=== PATIENT | male | born 1965 | race African-American/Black ===

== ENCOUNTER 2017-12-26 09:27 | Inpatient (IN) | payer MEDICAID ==
[~2017-12-26] VITALS: Ht 190.5 cm; Wt 94.3 kg
[2017-12-26] MEDS ORDERED: MIRT15 PO (09:45)
[2017-12-26] MEDS ORDERED: BUSP5TAB20 PO (09:45)
[2017-12-26 09:50] LABS: BASOPHILS % (AUTO) 1.4 % (0.0-2.0); EOSINOPHILS % (AUTO) 1.3 % (1.0-6.0); HEMATOCRIT 30.3 % (41-53); HEMOGLOBIN 10.1 g/dL (13.5-17.5); LYMPHOCYTES # (AUTO) 2.4 K/uL (1.0-4.8); LYMPHOCYTES % (AUTO) 25.8 % (22.0-44.0); MEAN CORPUSCULAR HEMOGLOBIN 28.4 pg (26.0-34.0); MEAN CORPUSCULAR HGB CONC 33.4 G/dL (31.0-37.0); MEAN CORPUSCULAR VOLUME 85 fL (80-100); MONOCYTES # (AUTO) 0.7 K/uL (0.1-1.0); MONOCYTES % (AUTO) 7.4 % (2.0-9.0); NEUTROPHILS # (AUTO) 6.1 K/uL (1.8-7.7); NEUTROPHILS % (AUTO) 64.1 % (40.0-70.0); PLATELET COUNT (AUTO) 244 K/uL (150-450); RED BLOOD CELL COUNT(AUTO) 3.57 MIL/uL (4.50-5.90); RED CELL DISTRIBUTION WIDTH 15.1 % (11.5-14.5)
[2017-12-26 09:59] LABS: ANION GAP 7 mmol/L (8-16); CALCIUM, TOTAL 8.2 mg/dL (8.8-10.5); CARBON DIOXIDE 28 mmol/L (22-29); CHLORIDE 104 mmol/L (98-107); CREATININE 0.89 mg/dL (0.60-1.30); GLOMERULAR FILTR. RATE CALC > 60 mL/min (>60); GLUCOSE,RANDOM 113 mg/dL (70-110); POTASSIUM 3.7 mmol/L (3.5-5.1); SODIUM SERUM 139 mmol/L (136-145); UREA NITROGEN, BLOOD 14 mg/dL (7-18)
[2017-12-26 10:05] LABS: ALANINE AMINOTRANSFERASE 151 U/L (12-78); ALBUMIN 3.3 g/dL (3.4-5.0); ALKALINE PHOSPHATASE 57 U/L (46-116); ASPARTATE AMINOTRANSFERASE 305 U/L (15-37); BILIRUBIN,TOTAL 0.8 mg/dL (0.1-1.0); TOTAL PROTEIN, SERUM 7.1 g/dL (6.4-8.2)
[2017-12-26] MEDS ORDERED: OLANZapine 5 MG RAPDIS TABLET PO PRN (11:45)
[2017-12-26] MEDS ORDERED: ACETAMINOPHEN 325 MG TABLET PO PRN (12:00)
[2017-12-26 13:51] LABS: APPEARANCE,URINE CLEAR (CLEAR); BILIRUBIN,URINE NEGATIVE (NEGATIVE); GLUCOSE, URINE (UA) NEGATIVE (NEGATIVE); KETONES,URINE 15 mg/dL (NEGATIVE); LEUKOCYTE ESTERASE ,URINE NEGATIVE (NEGATIVE); NITRATE,URINE NEGATIVE (NEGATIVE); OCCULT BLOOD,URINE NEGATIVE (NEGATIVE); PROTEIN,URINE TRACE (NEGATIVE)
[2017-12-26 13:55] LABS: AMPHET/METH SCREEN,URINE NEGATIVE (NEGATIVE); BARBITURATE SCREEN, URINE NEGATIVE (NEGATIVE); BENZODIAZEPINES SCREEN,URINE NEGATIVE (NEGATIVE); CANNABINOID SCREEN,URINE NEGATIVE (NEGATIVE); COCAINE SCREEN,URINE NEGATIVE (NEGATIVE); METHADONE SCREEN, URINE NEGATIVE (NEGATIVE); OPIATE SCREEN,URINE NEGATIVE (NEGATIVE)
[2017-12-26 13:56] LABS: PHENCYCLIDINE SCREEN,URINE NEGATIVE (NEGATIVE)
[2017-12-26 14:00] LABS: BACTERIA,URINE None Seen /HPF (None Seen); RBC,URINE 0-2 /HPF (0-2); WBC,URINE None Seen /HPF (0-5)
[2017-12-26] MEDS ORDERED: TERBINAFINE HCL 1% 30 GM CREAM TP ONE (19:36)
[2017-12-26] MEDS: IBUPROFEN 400 MG TABLET PO PRN (20:45)
[2017-12-26] MEDS: ZOLPIDEM TARTRATE 10 MG TABLET PO PRN (20:55)
[2017-12-26] MEDS: LORazepam 2 MG TABLET PO PRN (20:55)
[2017-12-26 20:57] VITALS: BP 169/87
[2017-12-26] MEDS ORDERED: MAG HYDROX/AL HYDROX/SIMETH ES 30 ML SUSPENSION UDCUP PO PRN (21:30)
[2017-12-26] MEDS ORDERED: ONDANSETRON HCL 4 MG TABLET PO PRN (21:30)
[2017-12-26] MEDS ORDERED: DOCUSATE SODIUM 100 MG CAPSULE PO PRN (21:30)
[2017-12-26] MEDS ORDERED: CloNIDine HCL 0.1 MG TABLET PO PRN (21:30)
[2017-12-26] MEDS ORDERED: ALBUTEROL SULFATE HFA 90 MCG/PUFF 8 GM INHALER IH PRN (21:30)
[2017-12-26] MEDS ORDERED: GuaiFENesin/D-METHORPHAN [SUGAR-FREE] 200-20MG/10 ML SYRUP UDCUP PO PRN (21:30)
[2017-12-26] MEDS ORDERED: PNEUMOCOCCAL VACCINE POLYVALENT 0.5 ML VIAL [PPSV23] IM ONE (21:30)
[2017-12-26] MEDS ORDERED: LOPERAMIDE HCL 2 MG CAPSULE PO PRN (21:30)
[2017-12-26] MEDS ORDERED: MAGNESIUM HYDROXIDE SUSPENSION 30 ML UDCUP PO PRN (21:30)
[2017-12-26] MEDS: AmLODIPine BESYLATE 10 MG TABLET PO SCH (21:30)
[2017-12-26 21:45] VITALS: BP 123/65
[2017-12-27] VITALS (9 sets, daily range): BP systolic 117–147; BP diastolic 59–86
[2017-12-27] MEDS: AmLODIPine BESYLATE 10 MG TABLET PO SCH (08:04)
[2017-12-27] MEDS: SULFAMETHOX/TRIMETH DS 800-160 MG/TABLET PO SCH ×2 (08:04→17:08)
[2017-12-27] MEDS: CEPHALEXIN MONOHYDRATE 500 MG CAPSULE PO SCH ×4 (08:04→20:59)
[2017-12-27 08:05] LABS: BASOPHILS % (AUTO) 0.5 % (0.0-2.0); EOSINOPHILS % (AUTO) 6.1 % (1.0-6.0); HEMATOCRIT 28.7 % (41-53); HEMOGLOBIN 9.7 g/dL (13.5-17.5); LYMPHOCYTES # (AUTO) 2.9 K/uL (1.0-4.8); LYMPHOCYTES % (AUTO) 45.2 % (22.0-44.0); MEAN CORPUSCULAR HEMOGLOBIN 28.3 pg (26.0-34.0); MEAN CORPUSCULAR HGB CONC 33.9 G/dL (31.0-37.0); MEAN CORPUSCULAR VOLUME 84 fL (80-100); MONOCYTES # (AUTO) 0.5 K/uL (0.1-1.0); MONOCYTES % (AUTO) 7.6 % (2.0-9.0); NEUTROPHILS # (AUTO) 2.6 K/uL (1.8-7.7); NEUTROPHILS % (AUTO) 40.6 % (40.0-70.0); PLATELET COUNT (AUTO) 258 K/uL (150-450); RED BLOOD CELL COUNT(AUTO) 3.44 MIL/uL (4.50-5.90); RED CELL DISTRIBUTION WIDTH 15.4 % (11.5-14.5)
[2017-12-27 08:32] LABS: HEMOGLOBIN A1C 6.2 % (4.5-6.2)
[2017-12-27 08:43] LABS: ALANINE AMINOTRANSFERASE 111 U/L (12-78); ALBUMIN 2.6 g/dL (3.4-5.0); ALKALINE PHOSPHATASE 43 U/L (46-116); ANION GAP 4 mmol/L (8-16); ASPARTATE AMINOTRANSFERASE 156 U/L (15-37); BILIRUBIN,TOTAL 0.6 mg/dL (0.1-1.0); CALCIUM, TOTAL 7.9 mg/dL (8.8-10.5); CARBON DIOXIDE 30 mmol/L (22-29); CHLORIDE 107 mmol/L (98-107); CHOL/HDL RATIO 2.7 (4.2-7.3); CHOLESTEROL 110 mg/dL (131-200); GLOMERULAR FILTR. RATE CALC > 60 mL/min (>60); GLUCOSE,RANDOM 99 mg/dL (70-110); HDL CHOLESTEROL 41 mg/dL (40-60); LDL CHOL (CALC.) 59 mg/dL (0-130); POTASSIUM 3.8 mmol/L (3.5-5.1); SODIUM SERUM 141 mmol/L (136-145); THYROID STIMULATING HORMONE 1.66 uIU/mL (0.36-3.74); TRIGLYCERIDES 48 mg/dL (15-150); UREA NITROGEN, BLOOD 13 mg/dL (7-18)
[2017-12-27] MEDS ORDERED: FERROUS SULFATE 325 MG EC TABLET PO SCH (09:45)
[2017-12-27] MEDS: FERROUS SULFATE 325 MG EC TABLET PO SCH ×2 (11:27→17:08)
[2017-12-27] MEDS ORDERED: LORazepam 2 MG TABLET PO PRN (12:30)
[2017-12-27] MEDS: FLUoxetine HCL 20 MG CAPSULE PO SCH (12:38)
[2017-12-27] MEDS: NICOTINE 14 MG/24 HOUR PATCH TD PRN (12:57)
[2017-12-27] MEDS: LORazepam 2 MG TABLET PO PRN (12:58)
[2017-12-27] MEDS: LevETIRAcetam 500 MG TABLET PO SCH (12:58)
[2017-12-27] MEDS: OLANZapine 5 MG TABLET PO SCH (20:57)
[2017-12-27] MEDS: ZOLPIDEM TARTRATE 10 MG TABLET PO PRN (20:57)
[2017-12-28 03:30] VITALS: BP 134/67
[2017-12-28] MEDS: FERROUS SULFATE 325 MG EC TABLET PO SCH ×3 (06:33→16:49)
[2017-12-28] MEDS ORDERED: LORazepam 2 MG TABLET PO PRN (07:00)
[2017-12-28] MEDS: SULFAMETHOX/TRIMETH DS 800-160 MG/TABLET PO SCH ×2 (08:40→16:49)
[2017-12-28] MEDS: CEPHALEXIN MONOHYDRATE 500 MG CAPSULE PO SCH ×4 (08:40→20:52)
[2017-12-28] MEDS: LORazepam 2 MG TABLET PO SCH ×4 (08:40→20:52)
[2017-12-28] MEDS: FLUoxetine HCL 20 MG CAPSULE PO SCH (08:40)
[2017-12-28] MEDS: LevETIRAcetam 500 MG TABLET PO SCH (08:40)
[2017-12-28] MEDS: AmLODIPine BESYLATE 10 MG TABLET PO SCH (08:40)
[2017-12-28 09:12] VITALS: BP 128/72
[2017-12-28] MEDS: IBUPROFEN 400 MG TABLET PO PRN (09:31)
[2017-12-28 10:30] VITALS: BP 142/80
[2017-12-28 16:00] VITALS: BP 137/74
[2017-12-28] MEDS: OLANZapine 5 MG TABLET PO SCH (20:52)
[2017-12-29] MEDS: FERROUS SULFATE 325 MG EC TABLET PO SCH ×3 (06:08→17:10)
[2017-12-29 06:36] VITALS: BP 141/87
[2017-12-29 08:08] VITALS: BP 142/74
[2017-12-29] MEDS: CEPHALEXIN MONOHYDRATE 500 MG CAPSULE PO SCH ×4 (08:24→21:10)
[2017-12-29] MEDS: LevETIRAcetam 500 MG TABLET PO SCH (08:25)
[2017-12-29] MEDS: SULFAMETHOX/TRIMETH DS 800-160 MG/TABLET PO SCH ×2 (08:25→17:10)
[2017-12-29] MEDS: AmLODIPine BESYLATE 10 MG TABLET PO SCH (08:25)
[2017-12-29] MEDS: LORazepam 2 MG TABLET PO SCH ×4 (08:25→21:10)
[2017-12-29] MEDS: FLUoxetine HCL 20 MG CAPSULE PO SCH (08:25)
[2017-12-29 08:30] VITALS: BP 138/76
[2017-12-29 16:00] VITALS: BP 135/70
[2017-12-29] MEDS: OLANZapine 5 MG TABLET PO SCH (21:17)
[2017-12-30] MEDS: FERROUS SULFATE 325 MG EC TABLET PO SCH ×3 (06:42→16:20)
[2017-12-30] MEDS ORDERED: LORazepam 1 MG TABLET PO PRN (07:00)
[2017-12-30 07:02] VITALS: BP 122/65
[2017-12-30 08:07] VITALS: BP 124/68
[2017-12-30] MEDS ORDERED: LORazepam 1 MG TABLET PO SCH (09:00)
[2017-12-30] MEDS: CEPHALEXIN MONOHYDRATE 500 MG CAPSULE PO SCH ×4 (09:16→20:47)
[2017-12-30] MEDS: LevETIRAcetam 500 MG TABLET PO SCH (09:16)
[2017-12-30] MEDS: FLUoxetine HCL 20 MG CAPSULE PO SCH (09:17)
[2017-12-30] MEDS: AmLODIPine BESYLATE 10 MG TABLET PO SCH (09:17)
[2017-12-30] MEDS: SULFAMETHOX/TRIMETH DS 800-160 MG/TABLET PO SCH ×2 (09:17→16:20)
[2017-12-30 10:35] VITALS: BP 137/84
[2017-12-30] MEDS: LORazepam 1 MG TABLET PO SCH (16:20)
[2017-12-30] MEDS: NICOTINE 14 MG/24 HOUR PATCH TD PRN (16:21)
[2017-12-30 16:58] VITALS: BP 146/81
[2017-12-30 17:00] VITALS: BP 146/81
[2017-12-30] MEDS: OLANZapine 5 MG TABLET PO SCH (20:47)
[2017-12-30] MEDS: ZOLPIDEM TARTRATE 10 MG TABLET PO PRN (20:47)
[2017-12-31 01:32] VITALS: BP 133/79
[2017-12-31] MEDS ORDERED: FLUO-191 PO ×2 (03:32→07:05)
[2017-12-31] MEDS ORDERED: OLAN5TAB2 PO ×2 (03:33→07:05)
[2017-12-31 06:04] VITALS: BP 133/78
[2017-12-31] MEDS: FERROUS SULFATE 325 MG EC TABLET PO SCH (06:46)
[2017-12-31] MEDS ORDERED: LORazepam 1 MG TABLET PO PRN (07:00)
[2017-12-31] MEDS ORDERED: LEVE250T55 PO (07:05)
[2017-12-31] MEDS ORDERED: SULF1TAB42 PO (07:05)
[2017-12-31] MEDS ORDERED: CEPH500 PO (07:05)
[2017-12-31 08:19] VITALS: BP 136/89
[2017-12-31] MEDS: SULFAMETHOX/TRIMETH DS 800-160 MG/TABLET PO SCH (08:24)
[2017-12-31] MEDS: FLUoxetine HCL 20 MG CAPSULE PO SCH (08:24)
[2017-12-31] MEDS: LevETIRAcetam 500 MG TABLET PO SCH (08:24)
[2017-12-31] MEDS: CEPHALEXIN MONOHYDRATE 500 MG CAPSULE PO SCH (08:24)
[2017-12-31] MEDS: LORazepam 1 MG TABLET PO SCH (08:24)
[2017-12-31] MEDS: AmLODIPine BESYLATE 10 MG TABLET PO SCH (08:24)
== END 2017-12-31 09:30 | disposition home or self-care (01) | DRG 750 ==
LOC: EMS 09:29 → B3A 19:05
PROVIDERS: ADMIT Psychiatry & Neurology Psychiatry; ATTEND Psychiatry & Neurology Psychiatry
PROC: 3E02340 Introduction of Influenza Vaccine into Muscle, Percutaneous Approach (ICD-10-PCS; principal; 2017-12-27)
PROC: 3E0234Z Introduction of Serum, Toxoid and Vaccine into Muscle, Percutaneous Approach (ICD-10-PCS; 2017-12-27)
DX: F25.0 Schizoaffective disorder, bipolar type (principal); R45.851 Suicidal ideations; F15.20 Other stimulant dependence, uncomplicated; R45.850 Homicidal ideations; D64.9 Anemia, unspecified; B35.3 Tinea pedis; F19.10 Other psychoactive substance abuse, uncomplicated; F41.9 Anxiety disorder, unspecified; L03.119 Cellulitis of unspecified part of limb; I10 Essential (primary) hypertension; R45.87 Impulsiveness; S90.822A Blister (nonthermal), left foot, initial encounter; S90.821A Blister (nonthermal), right foot, initial encounter; X58.XXXA Exposure to other specified factors, initial encounter; Y93.89 Activity, other specified; Y92.89 Other specified places as the place of occurrence of the external cause; Y99.8 Other external cause status; Z59.0 Homelessness; Z23 Encounter for immunization; Z71.51 Drug abuse counseling and surveillance of drug abuser; Z91.5 Personal history of self-harm; Z82.0 Family history of epilepsy and other diseases of the nervous system; Z88.0 Allergy status to penicillin; Z79.899 Other long term (current) drug therapy; Z91.19 Patient's noncompliance with other medical treatment and regimen
CPT/HCPCS: 80074; 83036; 84443; 90686; 90732; 99285; G0480